=== PATIENT | male | born 1960 | race Caucasian/White ===

== ENCOUNTER 2016-08-13 01:00 | Emergency (ER) | payer OTHER ==
--- NOTE | ~2016-08-13 | CT4 ---
[facility] A Service of [facility] & [facility] RADIOLOGY TEXT RESULTS PATIENT: ACE MCDONALD LOCATION: [facility] : 60 UNIT #: [id number] AGE: [address]: Jaja Banks MD SEX: M ORDER DR: [id number] [facility] [address] [place], [place] [address] [id number] MR#: [id number] Acc #: [id number] NAME: ACE MCDONALD : 1960 SEX: M STUDY DATE/TIME: 08/13/2016 1:35 UNIT: [facility] ROOM: STUDY DESCRIPTION: CT Abd and Pelv Wo Cont Attending Physician: Jaja Banks M.D. Ordering Physician: Jaja Banks M.D. Primary Care Physician: No Primary Care Physician MEDICAL IMAGING REPORT This report is preliminary unless electronic signature is present EXAM CT abdomen and pelvis, without contrast, 08/13/2016. HISTORY 56-year-old male complains of left flank pain for 1 week. Pain with urination. COMPARISON STUDIES CT abdomen and pelvis, 06/08/2009. PROCEDURE 3-mm noncontrasted axial images through the abdomen and pelvis. Enteric contrast was not administered. This CT exam was performed with one or more of the following radiation dose reduction techniques: automatic exposure control, adjustment of mA and/or kV according to patient size, and iterative reconstruction. FINDINGS There is mild generalized left hydronephrosis and hydroureter and perinephric inflammatory change. 6-mm stone is seen within the urinary bladder, presumably representing a recently passed left ureteral stone. A 3-mm nonobstructing stone is seen in the posterior left lower renal pole. Right renal cyst measures up to 6.1 cm. Lung bases are free of consolidation, although there is subsegmental atelectasis or scarring. 5-6 mm subpleural nodule is seen within the posterior left lower lobe (series 4, image 1). Cholecystectomy. Liver, spleen, pancreas, and adrenal glands have a normal noncontrasted appearance. Tiny umbilical hernia contains only fat. Normal appendix. PELVIS: Small right inguinal hernia contains only fat. Mild prostatic STS. [facility] A Service of [facility] & [facility] RADIOLOGY TEXT RESULTS PATIENT: ACE [facility]CD[facility]ALD [id number] 60 UNIT #: [id number] AGE: [address]: Jaja Banks MD SEX: M ORDER DR: enlargement. Rectum normal. 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 No acute osseous abnormalities are identified. IMPRESSION 1. Mild left hydronephrosis, hydroureter and left perinephric inflammatory changes. Suspected recent passage of a left-sided ureteral stone. 6-mm stone is seen dependently within the urinary bladder. No left ureteral stone is seen at this time. 2. 3-mm nonobstructing left renal stone. 3. 6.1-cm right renal cyst. 4. Normal appendix. 5. 5-6 mm noncalcified left lower lobe pulmonary nodule is not included in the field of view from the 2010 CT abdomen and pelvis. If this is a low risk patient, no further follow-up is necessary. If this is a high risk patient, optional CT chest in 12 months would be recommended, according to the new 2017 Alek[employer] Society criteria for pulmonary nodule management. 6. Cholecystectomy. 7. 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 8. Mild prostatic enlargement. 9. Small right inguinal hernia containing only fat. Dictated by... Kelly Moreno M.D. THIS IS AN ELECTRONICALLY VERIFIED REPORT Kelly Moreno M.D. at 08/13/2016 9:57 PM NIESHA/benjy TD: 08/13/2016 11:45 JOB #: [id number] MEDICAL IMAGING REPORT COPY
[~2016-08-13 01:00] MED LIST: LEVAQUIN PO; PERCOCET5/325 PO
[2016-08-13 04:17] LABS: URINE SOURCE CLEAN CATCH
[2016-08-13 04:32] LABS: URINE APPEARANCE CLEAR; URINE BILIRUBIN NEG (NEG); URINE BLOOD 3+ (NEG); URINE COLOR YELLOW; URINE GLUCOSE NEG (NEG); URINE KETONE NEG (NEG); URINE LEUKOCYTE ESTERASE TRACE (NEG); URINE NITRATE NEG (NEG); URINE PROTEIN NEG (NEG); URINE SPECIFIC GRAVITY 1.017 (1.003-1.035); URINE UROBILINOGEN 0.2 MG/DL (NEG)
[2016-08-13 04:36] LABS: URINE BACTERIA AUWI NEG (NEGATIVE); URINE SQUAMOUS EPITHELIAL CELL NONE SEEN /[HPF]
[2016-08-13 04:40] LABS: CULTURE INDICATED? NO
[2016-08-13 04:51] LABS: AMPHETAMINE NEG (NEG); BARBITURATES NEG (NEG); BENZODIAZEPINES NEG (NEG); COCAINE NEG (NEG); MARIJUANA NEG (NEG); OPIATES NEG (NEG); TRICYCLIC ANTIDEPRESSANTS NEG (NEG); U METHADONE NEG (NEG)
== END 2016-08-13 05:05 | disposition home or self-care (01) ==
LOC: CED 01:00
PROVIDERS: Student in an Organized Health Care Education/Training Program
DX: N13.2 Hydronephrosis with renal and ureteral calculous obstruction (principal); Z90.49 Acquired absence of other specified parts of digestive tract; Z88.0 Allergy status to penicillin
CPT/HCPCS: 74176; 80307; 81003; 99284

== ENCOUNTER → 2016-12-27 | Outpatient (CLI) | payer OTHER ==
--- NOTE | ~2016-12-27 | US85 ---
[facility] A Service of [facility] & [facility] RADIOLOGY TEXT RESULTS PATIENT: ACE MCDONALD LOCATION: [facility] : 60 UNIT #: [id number] AGE: [address]: YAMILET ROBLES APRN SEX: M ORDER DR: [id number] [address] [address] [id number] O MR#: [id number] Acc #: [id number] NAME: ACE MCDONALD : 1960 SEX: M STUDY DATE/TIME: 12/27/2016 13:58 UNIT: [facility] ROOM: STUDY DESCRIPTION: LE Veins Unilat or Ltd Stdy Attending Physician: Yamilet Robles Aprn Referring Physician: Yamilet Robles Aprn Ordering Physician: Yamilet Robles Aprn Primary Care Physician: No Primary Care Physician MEDICAL IMAGING REPORT This report is preliminary unless electronic signature is present. EXAM Right lower extremity venous duplex 12/27/2016 HISTORY Right lower extremity pain and edema for 1 week. Evaluate for deep vein thrombosis. FINDINGS Daley-scale images of the right lower extremity were obtained as well as Doppler waveform, spectral analysis and color flow Doppler imaging. There is normal blood flow and compressibility in the right common femoral vein, deep femoral vein, superficial femoral vein and popliteal vein. Normal blood flow and compressibility seen in the right anterior posterior tibial veins. The right peroneal vein was not visualized. IMPRESSION The exam is somewhat limited as the right peroneal vein was not visualized. There is no evidence of deep vein thrombosis within the visualized lower extremity deep veins. Dictated by... Michael Berrios M.D. THIS IS AN ELECTRONICALLY VERIFIED REPORT Michael Berrios M.D. at 12/28/2016 2:06 PM AMIE/mildred TD: 12/27/2016 15:41 JOB #: [id number] MEDICAL IMAGING REPORT Page 1 of 1
== END | disposition home or self-care (01) ==
LOC: SNIV 12:27
DX: R60.9 Edema, unspecified (principal)
CPT/HCPCS: 93971